=== PATIENT | male | born 1940 | race Caucasian/White ===

== ENCOUNTER → 2016-07-25 | Outpatient (CLI) | payer MEDICARE, OTHER ==
--- NOTE | 2016-07-25 10:35 | RAD ---
Indication follow-up lung nodule. Noncontrast imaging of the chest was performed and is compared to a study 08/10/2015. The history of prostate malignancy is noted. Underlying emphysematous changes are noted. Tiny peripheral nodule, measuring approximately 1 to 2 mm, in the left upper lobe, image 148 series 3 appears unchanged. A nodule at the left lung base, image 248 also appears similar. Scattered areas of pleural-parenchymal scarring are seen also appearing similar. An acute finding in the chest is not apparent. Some coronary artery calcification is noted. Significant hilar or mediastinal adenopathy is not seen. Imaging through the upper abdomen shows no acute finding. Occasional hepatic cysts are noted. IMPRESSION: No acute finding seen in the chest. Small pulmonary nodules in the left lung appear stable. PQRS Compliance Statement: One or more of the following individualized dose reduction techniques were utilized for this examination: 1. Automated exposure control 2. Adjustment of the mA and/or kV according to patient size 3. Use of iterative reconstruction technique
== END | disposition home or self-care (01) ==
LOC: CT 09:01
PROVIDERS: ATTEND Internal Medicine Pulmonary Disease
DX: R91.1 Solitary pulmonary nodule (principal)
CPT/HCPCS: 71250

== ENCOUNTER → 2017-07-27 | Outpatient (CLI) | payer MEDICARE, OTHER | END | disposition home or self-care (01) | LOC: CT 08:36 | DX: M47.894 Other spondylosis, thoracic region (principal); I25.10 Atherosclerotic heart disease of native coronary artery without angina pectoris; R91.8 Other nonspecific abnormal finding of lung field | CPT/HCPCS: 71250 ==

== ENCOUNTER → 2018-08-06 | Outpatient (CLI) | payer MEDICARE, OTHER ==
--- NOTE | 2018-08-06 17:17 | RAD ---
Chest CT without contrast Clinical indications: Follow-up of lung nodule COMPARISON: July 27, 2017 and July 25, 2016. TECHNIQUE: Noncontrast helical CT scanning of the chest was performed. Without contrast, the sensitivity to detect organ pathology is decreased. PQRS compliance Statement One or more of the following individualized dose reduction techniques were utilized for this study: 1. Automated exposure control 2. Adjustment of the mA and/or kV according to patient size 3. Use of iterative reconstruction technique FINDINGS: No enlarged thoracic lymphadenopathy is evident. No focal aneurysmal dilatation of the thoracic aorta is seen. The heart size is within normal limits. Calcified atheromatous disease of the coronary arteries is seen. No pericardial effusion is seen. Left lung nodules seen previously are stable dating back to June 2016 consistent with a benign finding over 2 years. Bilateral interstitial pulmonary fibrosis and peripheral honeycombing is seen with a lower lung zone predominance. There has been an increase in interstitial infiltrate and groundglass lung infiltrate within both lower lobes posteriorly. Bilateral bronchiectasis and chronic peribronchial thickening is seen. Bilateral emphysema is evident. No lung mass or lung consolidation is seen. The proximal bronchial tree is patent. No lytic process is seen. No adrenal mass is evident. IMPRESSION: Stable left lung nodules consistent with a benign finding. Chronic pulmonary fibrosis and chronic bronchitis and bronchiectasis with a lower lung zone predominance. There does appear to be slight increase in groundglass lung infiltrate and interstitial infiltrate within both lower lobes which may indicate some worsening or acute inflammatory process in association with usual interstitial pneumonitis (UIP). Electronically signed by: Marcin Loyd MD (08/06/2018 5:13 PM) [id number]
== END | disposition home or self-care (01) ==
LOC: CT 09:37
PROVIDERS: ATTEND Internal Medicine Pulmonary Disease
DX: J47.9 Bronchiectasis, uncomplicated (principal); J42 Unspecified chronic bronchitis; J84.10 Pulmonary fibrosis, unspecified; J43.9 Emphysema, unspecified; R91.8 Other nonspecific abnormal finding of lung field
CPT/HCPCS: 71250

== ENCOUNTER → 2019-09-02 | Outpatient (CLI) | payer MEDICARE, OTHER ==
--- NOTE | 2019-09-02 08:22 | RAD ---
CT of the chest without contrast: Clinical History: Follow-up pulmonary nodule. Axial helical images of the chest were obtained without contrast. COMPARISON: August 06, 2018 and July 25, 2016 FINDINGS: There is a 6 mm x 7 mm pulmonary nodule left upper lobe abutting the fissure. This is unchanged. There are few calcified granuloma. The lungs are hyperinflated. There is diffuse emphysematous changes. There is mild subpleural changes in the lungs consistent with pulmonary fibrosis. There is a 6 Dov a pulmonary nodule at the left lung base. There is no change. There is calcified coronary arteries. There is an IVC filter in place. There are a few cysts in the liver seen previously. The lungs and pleural margins are clear. There is no mediastinal or hilar lymphadenopathy. Impression: 1. Emphysematous changes and hyperinflation and chronic pulmonary fibrosis. 2. 2 stable pulmonary nodules on the left likely noncalcified granuloma. No further follow-up is necessary. 3. Coronary artery calcifications. 4. Stable appearance of the chest. End impression PQRS Compliance Statement: One or more of the following individualized dose reduction techniques were utilized for this examination: 1. Automated exposure control 2. Adjustment of the mA and/or kV according to patient size 3. Use of iterative reconstruction technique Electronically signed by: Ton Aviles III, MD (09/02/2019 8:19 AM) [id number]
== END | disposition home or self-care (01) ==
LOC: CT 07:34
PROVIDERS: ATTEND Internal Medicine Pulmonary Disease
DX: J43.9 Emphysema, unspecified (principal); J84.10 Pulmonary fibrosis, unspecified; R91.8 Other nonspecific abnormal finding of lung field; I25.10 Atherosclerotic heart disease of native coronary artery without angina pectoris; Z88.8 Allergy status to other drugs, medicaments and biological substances; Z87.891 Personal history of nicotine dependence
CPT/HCPCS: 71250

== ENCOUNTER → 2020-05-25 | Outpatient (CLI) | payer MEDICARE, OTHER ==
[~2020-05-25] MED LIST: AMIT10TA PO; ASPI-630 PO; CALC1CAP8 PO; CHOL100013 PO; IBUP-1027 PO; MULT-246 PO; OMEG1CAP38 PO; PERFLUTREN PROTEIN-A MICROSPHR 0.22 MG/ML 3 ML VIAL. IV ONE; REGADENOSON 0.4 MG/5 ML DISP.SYRIN. IV ONE; TIOT4MIS2 IH; UBIQ100C3 PO; [UNRECOGNIZED DRUG - CODE] PO
--- NOTE | 2020-05-25 14:44 | CARD ---
MR#: [id number] Date of Study: 05/25/2020 Ordering Physician: ALEXYS PAULA, Referring Physician: ALEXYS PAULA, Tech: Mary Dominique [facility] APPROVED REPORT EXAM: Two-dimensional and M-mode echocardiogram with Doppler and color Doppler. Other Information Quality : Technically LimitedHR: 59bpm Rhythm : NSRTechnically limited study due to body habitus. INDICATION Dyspnea Chest Pain Echo Enhancing Agent Indication: Endocardial border delineation Agent/Amount Used: Optison 2mL RISK FACTORS Obesity 2D DIMENSIONS RVDd3.1 (2.9-3.5cm)Left Atrium(2D)3.9 (1.6-4.0cm) IVSd1.6 (0.7-1.1cm)Aortic Root(2D)3.4 (2.0-3.7cm) LVDd4.0 (3.9-5.9cm)LVOT Diameter2.3 (1.8-2.4cm) PWd1.4 (0.7-1.1cm)LVDs3.0 (2.5-4.0cm) FS (%) 25.6 %SV35.8 ml Aortic Valve AoV Peak Gamaliel.109.8cm/sAoV VTI21.3cm AO Peak GR.4.8mmHgLVOT Peak Gamaliel.83.4cm/s AO Mean GR.2mmHgAVA (VMAX)3.13cm2 Mitral Valve MV E Btlzwkpj27.0cm/sMV DECEL [id number] MV A Qsuatjno56.7cm/sE/A Ratio0.6 Pulmonary Valve PV Peak Wbnjuvfv53.1cm/s Tricuspid Valve TR P. Nrdwrdzz539vc/sTR Peak Gr.21mmHg Pulmonary Vein S1 Xubscgdn44.4cm/sD2 Jfbnaazg32.9cm/s PVa [id number] LEFT VENTRICLE The left ventricle is normal size. There is mild concentric left ventricular hypertrophy. The left ve ntricular systolic function is normal and the ejection fraction is within normal range. Estimated ej ection fraction 60-65%. There is normal LV segmental wall motion. Transmitral Doppler flow pattern is Grade I-abnormal relaxation pattern. RIGHT VENTRICLE The right ventricle is normal size. The right ventricle is mildly hypertrophied. The right ventricula r systolic function is normal. ATRIA The left atrium size is normal. The right atrium size is normal. The interatrial septum is intact wit h no evidence for an atrial septal defect or patent foramen ovale as noted on 2-D or Doppler imaging. AORTIC VALVE The aortic valve is normal in structure and function. Doppler and Color Flow revealed mild aortic reg urgitation. There is no significant aortic valvular stenosis. MITRAL VALVE The mitral valve is normal in structure and function. There is no evidence of mitral valve prolapse. There is no mitral valve stenosis. Doppler and Color Flow revealed trace mitral valve regurgitation. TRICUSPID VALVE The tricuspid valve is normal in structure and function. Doppler and Color Flow revealed trace tricus pid regurgitation. Estimated PAP 25 mmHg. PULMONIC VALVE The pulmonary valve is normal in structure and function. Doppler and Color Flow revealed mild pulmoni c valvular regurgitation. GREAT VESSELS The aortic root is normal in size. The ascending aorta is normal in size. The IVC is normal in size a nd collapses >50% with inspiration. PERICARDIAL EFFUSION There is no evidence of significant pericardial effusion. Critical Notification Critical Value: No <Conclusion> The left ventricle is normal size. The left ventricular systolic function is normal and the ejection fraction is within normal range. Estimated ejection fraction 60-65%. There is mild concentric left ventricular hypertrophy. Doppler and Color Flow revealed mild aortic regurgitation. There is no significant aortic valvular stenosis. Doppler and Color Flow revealed trace mitral valve regurgitation. Doppler and Color Flow revealed trace tricuspid regurgitation. Estimated PAP 25 mmHg. Signed by : Alexys Paula MD Electronically Approved : 05/25/2020 14:43:59
--- NOTE | 2020-05-25 15:16 | RAD ---
MR#: [id number] Date of Study: 05/25/2020 Ordering Physician: YUSUF PAULA, Referring Physician: NEO DAMON Tech: RT Roosevelt (R) (N) APPROVED REPORT Test Type: Pharmacological Stress Nurse/Tech: Dorothy Christie R.N. Test Indications: cad, chest pain Cardiac History: COPD, cath 10 years ago Medications: see ehr Medical History: see ehr Resting ECG: sr with PACs Resting Heart Rate: 59 bpm Resting Blood Pressure: 134/67mmHg Pretest Chest Pain: No chest pain Nurse/Tech Notes lungs cta, heart tones irregular, good radial pulse Consent: The procedure was explained to the patient in lay terms. Informed consent was witnessed. Keo eout was entered into [employer]. History and Stress Test performed by RT Kanu (R) (N) Pharm. Details Pharmacologic stress testing was performed using 0.4mg per 5ml of regadenoson given intravenously ove r 7-10 seconds. Stress Symptoms No chest pain or symptoms. POST EXERCISE Reason for Termination: Infusion complete Target HR: No Max HR: 74 bpm Max Blood Pressure: 133/63mmHg Chest Pain: No. Arrhythmia: Yes. PACs continued ST Change: No. INTERPRETATION Stress EKG Conclusion: The resting EKG shows a sinus rhythm with mild nonspecific ST-T wave changes. The stress EKG shows no significant changes from baseline. No EKG evidence of stress-induced ischemia. Rest: Stress: Viability: Radiopharm.Tc99m MoqbnaycvCg23g Sestamibi Dose10.5mCi 32mCi Duration 15min. 15min. Img Date 05/25/2020 05/25/2020 Inj-Img Xpmk81khg. 60min. Rest Admin Site:IV - Right AntecubitalAdministrator:RT Roosevelt (Olivia)(N) Stress Admin Site: IV - Right AntecubitalAdministrator: RT Bossman Bobby)(N) STRESS DATA End Diast. Vol.62.0mlAv. Heart Rate74.0bpm End Syst. Vol.17.0mlCO Index BSA3.3L/min Myocardial Tsjl132.0gEject. Dhvuoinx78.0% Stress Rates Pk. Fill Rate3.13EDV/secLVtime Pk. Fill 229.42msec Pk. Empty Rate4.42ESV/secLVtime Pk. Clmxo244.60msec 1/3 Pk. Fill0.67EDV/sec Stress Scores Regional WT0.00Summed WT0.00 Regional WM0.00Summed WM3.00 LV Perfusion The stress scans show no significant defects. The rest scans showed no significant defects. Nuclear imaging shows no reversible ischemia or infarct. Wall Motion Left ventricular systolic function is normal with an ejection fraction of 67%. LV Perf. Quant 17 Seg. SSS3.00 17 Seg. SRS2.00 17 Seg. SDS1.00 Stress Defect Extent (% LAD)0.00Rest Defect Extent (% LAD)0.00Rev. Defect Extent (% LAD)0.00 Stress Defect Extent (% LCX) 32.50Rest Defect Extent (% LCX)17.50Rev. Defect Extent (% LCX)3.80 Stress Defect Extent (% RCA)0.00Rest Defect Extent (% RCA)0.00Rev. Defect Extent (% RCA)0.00 Stress Defect Extent (% RAMÍREZ)5.70Rest Defect Extent (% RAMÍREZ)3.00Rev. Defect Extent (% RAMÍREZ)0.70 Conclusion 1. No EKG evidence of stress-induced ischemia. 2. Nuclear imaging shows no reversible ischemia or infarct. 3. Normal left ventricular systolic function with an ejection fraction of 67%. 4. Low risk Lexiscan nuclear stress test. Signed by : Yusuf Paula MD Electronically Approved : 05/25/2020 15:15:49
== END ==
LOC: NM 08:48
PROVIDERS: ATTEND Internal Medicine Cardiovascular Disease
DX: I08.8 Other rheumatic multiple valve diseases (principal); I25.10 Atherosclerotic heart disease of native coronary artery without angina pectoris
CPT/HCPCS: 78452; 93017; 93306; A9500; J2785